=== PATIENT | female | born 1975 | race Caucasian/White ===

== ENCOUNTER → 2022-03-08 | Outpatient (CLI) | payer BC | LOC: RAD 15:32 | PROVIDERS: ATTEND Family Medicine | DX: Z12.31 Encounter for screening mammogram for malignant neoplasm of breast (principal) | CPT/HCPCS: 77063; 77067 ==

== ENCOUNTER 2022-09-25 05:43 | Outpatient (CLI) | payer BC ==
[~2022-09-25] VITALS: Ht 167.6 cm; Wt 77.1 kg
[2022-09-26] MEDS ORDERED: SPIR50TA4 PO (08:46)
[2022-09-26] MEDS ORDERED: CARV12.53 PO (08:46)
[2022-09-26] MEDS ORDERED: METF-397 PO (08:46)
[2022-09-26] MEDS ORDERED: SEMA0.258 SQ (08:46)
[2022-09-26] MEDS ORDERED: BUPR300T98 PO (08:46)
== END 2022-09-26 08:50 | disposition home or self-care (01) ==
LOC: PREOP 05:43
PROVIDERS: ATTEND Internal Medicine
DX: Z01.818 Encounter for other preprocedural examination (principal)

== ENCOUNTER 2022-10-04 07:24 | Day surgery (SDC) | payer BC ==
--- NOTE | 2022-09-20 09:35 | HISTORY AND PHYSICAL ---
COLONOSCOPY SUMMARY HISTORY OF PRESENT ILLNESS: The patient is a 47-year-old white female referred by Dr. Goff for her first screening colonoscopy. She is deemed to be of little higher than average risk because she does report a grandfather who had colon cancer. She is not sure how old at the time of diagnosis. Mother had a history of colon polyps as well. The patient has had a little bit of constipation since initiating Ozempic for weight loss. She denies bright red blood per rectum, melena or abdominal pain. PAST MEDICAL HISTORY: Significant for hypertension and hypothyroidism as well as generalized anxiety. FAMILY HISTORY: Noted in the HPI. Her mother had colon polyps, but she succumbed complications of alcoholism at the age of 63. Father is living with no health problems at the age of 68 and a grandfather with colon cancer at an unknown age. SOCIAL HISTORY: She is employed at [employer]. . No past smoking history. No significant alcohol intake. REVIEW OF SYSTEMS: CONSTITUTIONAL: No night sweats, chills or fever. Had been gaining weight previous to the initiation of Ozempic, has now been losing. CARDIOVASCULAR: Denies chest pain, orthopnea, PND, pedal edema or dyspnea on exertion. PULMONARY: Denies cough, wheezing or shortness of breath. GASTROINTESTINAL: As noted in the HPI. PHYSICAL EXAMINATION: GENERAL: Reveals a white female, appears to be in no acute distress. VITAL SIGNS: Blood pressure 120/72, weight 175 pounds. HEENT: Unremarkable. Sclerae nonicteric. CHEST: Clear to auscultation. CARDIOVASCULAR: Reveals regular rate and rhythm without murmur, S3, or S4. ABDOMEN: Soft, supple without mass, organomegaly, or tenderness. EXTREMITIES: Revealed no cyanosis, clubbing or edema. ASSESSMENT AND PLAN: The patient set up for her first screening colonoscopy. Prep instructions were given and questions were answered. She has what appears to be well controlled hypertension and hypothyroidism with anxiety that she feels is under control on current medication. I thank you for the referral of this pleasant lady. Job ID: [id number] DocumentID: [id number] Dictated Date: 09/09/2022 16:03:53 Commis Chef Date: 09/09/2022 16:32:00 Dictated By: MIRIAM VAUGHN MD
[~2022-10-04] VITALS: Ht 167.6 cm; Wt 77.1 kg
[~2022-10-04 07:24] MED LIST: BUPR300T98 PO; CARV12.53 PO; METF-397 PO; SEMA0.258 SQ; SPIR50TA4 PO
[2022-10-04] MEDS ORDERED: LACTATED RINGERS 1,000 ML IV STA (07:35)
[2022-10-04 07:45] VITALS: BP 133/77
--- NOTE | 2022-10-04 07:47 | Pre-Op Note & Conscious Sedat ---
Pre-Operative Progress Note Date H&P Reviewed: October 04, 2022 Time H&P Reviewed: 07:47 History & Physical: H&P Reviewed, Patient Examed, No changes noted Pre-Op Diagnosis: dysphagia Moderate Sedation PreProcedure ASA Score 2 Airway Lungs Heart ASA score ASA 1: a normal healthy patient ASA 2: a patient with a mild systemic disease (mid diabetes, controlled hypertension, obesity ASA 3: a patient with a severe systemic disease that limits activity (angina, COPD, prior Myocardial infarction) ASA 4: a patient with an incapacitating disease that is a constant threat to life (CHF, renal failure) ASA 5: a moribund patient not expected to survive 24 hrs. (ruptured aneurysm) ASA 6: a declared brain- patient whose organs are being harvested. For emergent operations, add the letter E after the classification Mallampati Classification Grade 2 Sedation Plan Analgesia, Amnesia, Plan communicated to team members, Discussed options with patient/fam, Discussed risks with patient/fam The patient is an appropriate candidate to undergo the planned procedure, sedation, and anesthesia. The patient immediately re-assessed prior to indication. MIRIAM VAUGHN MD October 04, 2022 07:47
--- NOTE | 2022-10-04 07:49 | Pre-Op Note & Conscious Sedat ---
Pre-Operative Progress Note Date H&P Reviewed: October 04, 2022 Time H&P Reviewed: 07:49 History & Physical: H&P Reviewed, Patient Examed, No changes noted Pre-Op Diagnosis: screening Moderate Sedation PreProcedure Time 07:47 ASA Score 2 Airway Lungs Heart ASA score ASA 1: a normal healthy patient ASA 2: a patient with a mild systemic disease (mid diabetes, controlled hypertension, obesity ASA 3: a patient with a severe systemic disease that limits activity (angina, COPD, prior Myocardial infarction) ASA 4: a patient with an incapacitating disease that is a constant threat to life (CHF, renal failure) ASA 5: a moribund patient not expected to survive 24 hrs. (ruptured aneurysm) ASA 6: a declared brain- patient whose organs are being harvested. For emergent operations, add the letter E after the classification Mallampati Classification Grade 1 Sedation Plan Analgesia, Amnesia, Plan communicated to team members, Discussed options with patient/fam, Discussed risks with patient/fam The patient is an appropriate candidate to undergo the planned procedure, sedation, and anesthesia. The patient immediately re-assessed prior to indication. MIRIAM VAUGHN MD October 04, 2022 07:49
[2022-10-04] MEDS ORDERED: PROPOFOL INJECTION 50 ML IV ONE (08:16)
[2022-10-04] MEDS ORDERED: MIDAZOLAM 2 MG/2 ML (VERSED) VIAL ONE (08:16)
[2022-10-04 08:40] VITALS: BP 99/57
--- NOTE | 2022-10-04 08:41 | Progress Note-Post Operative ---
Post-Procedure Note Physician (s)/Incubator Tender (s) Physician MIRIAM VAUGHN MD Pre-Procedure Diagnosis Pre-Procedure Diagnosis: screening Post-Procedure Diagnosis Post-operative diagnosis: Prior to undergoing colonoscopy digital rectal evaluation was performed. Anal sphincter tone was normal and the perianal reflexes intact. No abnormalities noted on digital inspection anal canal or distal rectal vault. The colonoscope was then inserted into the rectum and under direct visualization advanced to the cecum. The cecum was identified by identification of the ileocecal valve and cecal strap. Photographic documentation was obtained. A careful inspection was made as the colonoscope was withdrawn. Quality the prep was good. Findings: There was no evidence for internal or external hemorrhoids and the rectum sigmoid colon descending colon splenic flexure were unremarkable. A 3 mm sessile polyp was noted in the distal transverse colon that was biopsied and ablated with no blood loss and submitted for histopathology. The remainder the transverse colon hepatic flexure ascending colon and cecum were unremarkable. A/P 1. One 3 mm polyp was removed via hot forceps from the distal transverse colon with an otherwise normal colonoscopy to the cecum. Would advocate consideration for repeat screening colonoscopy in 10 years. I thank you for the furl this pleasant lady sincerely, Miriam Vaughn MD. CC: LILIAN Jacinto MARK D MD October 04, 2022 08:41
[2022-10-04 08:45] VITALS: BP 100/68
[2022-10-04 09:12] VITALS: BP 100/68
--- NOTE | 2022-10-04 10:27 | Anesthesia-General Post-Op ---
MAC Patient Condition Mental Status/LOC: Same as Preop Cardiovascular: Satisfactory Nausea/Vomiting: Absent Respiratory: Satisfactory Pain: Controlled Complications: Absent Post Op Complications Complications None Follow Up Care/Instructions Patient Instructions None needed. Anesthesiology Discharge Order Discharge Order Patient is doing well, no complaints, stable vital signs, no apparent adverse anesthesia problems. No complications reported per nursing. LANE TIRADO CRNA October 04, 2022 10:27
== END 2022-10-04 09:20 | disposition home or self-care (01) ==
LOC: ENDO 07:24
PROVIDERS: ATTEND Internal Medicine
DX: Z12.11 Encounter for screening for malignant neoplasm of colon (principal); K63.5 Polyp of colon; I10 Essential (primary) hypertension; F41.1 Generalized anxiety disorder; E03.9 Hypothyroidism, unspecified; Z80.0 Family history of malignant neoplasm of digestive organs; Z79.899 Other long term (current) drug therapy

== ENCOUNTER → 2023-03-31 | Outpatient (CLI) | payer BC ==
--- NOTE | 2023-04-01 16:01 | Diagnostic Imaging Report ---
INDICATION: Routine screening. COMPARISON: 02/28/2022 and 08/14/2020. TECHNIQUE: 2D and 3D bilateral screening mammography was performed with CAD. FINDINGS: Both breasts are heterogeneously dense, limiting the sensitivity of mammography. There is a cluster of microcalcifications in the inner aspect of the right breast at mid depth which appear to be increased since the prior exam. Additional views are recommended. The left breast is unremarkable. No mass is identified. The axillae are unremarkable. IMPRESSION: Right breast calcifications. Additional views are recommended for further evaluation. ACR BI-RADS Category 0: Incomplete. (Needs additional imaging evaluation). Result letter will be mailed to the patient. Note: At least 10% of breast cancer is not imaged by mammography. Dictated by: Dictated on workstation # [id number]
== END ==
LOC: RAD 15:30
PROVIDERS: ATTEND Nurse Practitioner Family
DX: Z12.31 Encounter for screening mammogram for malignant neoplasm of breast (principal); R92.1 Mammographic calcification found on diagnostic imaging of breast
CPT/HCPCS: 77063; 77067

== ENCOUNTER → 2023-04-17 | Outpatient (CLI) | payer BC ==
--- NOTE | 2023-04-17 16:07 | Diagnostic Imaging Report ---
INDICATION: Right breast calcifications. The patient presents for additional views. CORRELATION is made with the screening mammogram from 03/31/2023. Unilateral right 2-D and 3-D diagnostic mammography was performed with CAD. This included magnification CC and ML views as well as conventional 90 degree lateral views. Additional views show a cluster of microcalcifications in the inner portion of the right breast which appears to be increased when compared with prior mammograms. Multiple calcifications are round but there are several demonstrating pleomorphism. No associated soft tissue mass is identified. IMPRESSION: BI-RADS Category 4. Increasing cluster of microcalcifications in the inner portion of the right breast mid depth. DCIS cannot be entirely excluded. Tissue sampling is recommended. These would be amenable to stereotactic biopsy approach. ACR BI-RADS Category 4: Suspicious abnormality. Result letter will be mailed to the patient. Note: At least 10% of breast cancer is not imaged by mammography. Dictated by: Dictated on workstation # [id number]
== END ==
LOC: RAD 13:15
PROVIDERS: ATTEND Nurse Practitioner Family
DX: R92.1 Mammographic calcification found on diagnostic imaging of breast (principal)
CPT/HCPCS: 77065; G0279

== ENCOUNTER → 2023-04-21 | Outpatient (CLI) | payer BC ==
[~2023-04-21] VITALS: Ht 167.7 cm; Wt 77.3 kg
[2023-04-21] VITALS (7 sets, daily range): BP systolic 69–125; BP diastolic 46–95
[~2023-04-21] MED LIST changes: +LIDOCAINE 1% INJ 10 ML VIAL INJ STA; +NS IV 500 ML 500 ML IV STA; +NS IV STA
--- NOTE | 2023-04-21 16:02 | Diagnostic Imaging Report ---
INDICATION: Right breast calcifications. Patient presents for stereotactic biopsy. DETAILS OF THE PROCEDURE: The patient was brought to the stereotactic suite and placed in a chair in a sitting upright position. The right breast was positioned medial lateral. The cluster of microcalcifications in the inner aspect of the right breast was stereotactically targeted. All images were viewed on a dedicated mammographic workstation. The medial right breast was then prepped and draped in the usual sterile fashion. A small amount of 1% lidocaine was utilized for local anesthesia. An 8 gauge vacuum-assisted needle was advanced into the right breast from a mediolateral approach and placed per stereotactic coordinates. Four core biopsies were obtained. Following the biopsy, it was noticed that there was some brisk bleeding from the puncture site in the right breast and the patient began to experience a vasovagal reaction; therefore, the needle was removed and pressure was applied immediately and the patient was laid back in a supine position. Due to this, the localizer clip was not deployed. The specimen radiograph did not demonstrate any significant calcifications. There were a couple of calcifications on sample labeled #1. An IV was started and the patient was given 500 mL of normal saline. After several minutes, the patient's blood pressure and heart rate recovered. A followup 2D CC and ML mammogram was obtained on dedicated mammographic equipment. The patient left the Department in stable condition. IMPRESSION: Stereotactic biopsy of the right breast as described. The procedure was somewhat abbreviated due to some bleeding during the procedure as well as the patient experiencing a vasovagal response. We will await the Pathology results to determine the next step. If the biopsy is indeed "benign", the patient is likely needed to undergo a repeat stereotactic biopsy in a couple of weeks to ensure the biopsy is not a "false negative". Dictated by: Dictated on workstation # [id number]
== END ==
LOC: RAD 09:04
PROVIDERS: ATTEND Nurse Practitioner Family
DX: N63.10 Unspecified lump in the right breast, unspecified quadrant (principal)
CPT/HCPCS: 19081